=== PATIENT | female | born 1960 | race Two or more races ===

== ENCOUNTER 2020-01-09 09:23 | Outpatient (CLI) | payer MEDICAID ==
[~2020-01-09] VITALS: Ht 162.6 cm; Wt 58.5 kg
[2020-01-09 09:48] VITALS: BP 123/82
[2020-01-09] MEDS ORDERED: ASPIRIN EC81 MG ORAL (09:51)
[2020-01-09] MEDS ORDERED: MULTIVITAMINS1 EAC2 ORAL (09:51)
--- NOTE | 2020-01-09 10:30 | Consultation ---
DATE OF CONSULTATION: 01/09/2020 GASTROENTEROLOGY CONSULTATION CONSULTING PHYSICIAN: Dustin Mckeon MD. CHIEF COMPLAINT: Referral for screening colonoscopy, also complained of chronic GERD. PAST MEDICAL HISTORY: None. PAST SURGICAL HISTORY: . MEDICATIONS: aspirin. FAMILY HISTORY: Noncontributory. SOCIAL HISTORY: The patient denies any tobacco, alcohol, or drug use. ALLERGIES: No known allergies. REVIEW OF SYSTEMS: Positive for chronic GERD and bloating. PHYSICAL EXAMINATION: VITAL SIGNS: Temperature 95.2, blood pressure 122/82, pulse 92, respirations 20. HEENT: Normocephalic and atraumatic. Sclerae are anicteric. NECK: Supple. No evidence of obvious lymphadenopathy. CARDIOVASCULAR: Regular rate and rhythm. Plus S1 and S2. LUNGS: Clear to auscultation bilaterally. ABDOMEN: Positive bowel sounds. Soft and nontender. No rebound. No guarding. No peritoneal sign. EXTREMITIES: No cyanosis, no clubbing, no edema. ASSESSMENT AND PLAN: This is a 59-year-old female referred for screening colonoscopy, also complained of chronic GERD, needs endoscopy. Plan is to do both when authorization is obtained. Dustin Mckeon M.D. DR: MARYBEL JOB#: [id number] CC:
== END 2020-01-09 11:23 | disposition home or self-care (01) ==
LOC: PAN 09:23
DX: K21.9 Gastro-esophageal reflux disease without esophagitis (principal); R14.0 Abdominal distension (gaseous)
CPT/HCPCS: G0463

== ENCOUNTER 2020-05-09 13:52 | Outpatient (CLI) | payer MEDICAID ==
[~2020-05-09 13:52] MED LIST: ASPIRIN EC81 MG ORAL; MULTIVITAMINS1 EAC2 ORAL
[2020-05-09 14:03] VITALS: BP 139/78
== END 2020-05-09 15:52 | disposition home or self-care (01) ==
LOC: PAN 13:52
DX: R10.9 Unspecified abdominal pain (principal)
CPT/HCPCS: 99212